=== PATIENT | female | born 1970 | race American Indian/Alaskan Native ===

== ENCOUNTER 2017-12-20 19:42 | Emergency (ER) | payer BC, OTHER ==
[2017-12-20 20:03] VITALS: TEMP 98.3; O2SAT 99
[2017-12-20] MEDS ORDERED: DiphenhydrAMINE 50 mg/ml Inj IVP STA (20:29)
--- NOTE | 2017-12-20 20:33 | C.PDOC ---
History Of Present Illness Patient is a 47 y/o F presenting with headache. Patient reports that she has had headache x 3 days. She reports that this morning she woke up this morning with R sided ptosis, so she went to her PMD. PMD Dr. Brennan sent her directly to the ED. She reports that she used oxygen today which relieved her headache. Denies any neck pain, weakness, numbness, tingling. Denies any other weakness or deficit. Time Seen by Provider: 12/20/17 20:14 Chief Complaint (Nursing): Headache Past Medical History Vital Signs: Last Vital Signs Temp 98.3 F 12/20/17 19:57 Pulse 81 12/20/17 19:57 Resp 18 12/20/17 19:57 BP 118/82 12/20/17 19:57 Pulse Ox 99 12/20/17 23:13 - Medical History PMH: Asthma, Diabetes, HTN, Migraine Surgical History: Cholecystectomy Family History: States: Unknown Family Hx - Social History Hx Tobacco Use: No Hx Alcohol Use: No Hx Substance Use: No - Immunization History Hx Tetanus Toxoid Vaccination: No Hx Influenza Vaccination: No Hx Pneumococcal Vaccination: No Review Of Systems Constitutional: Negative for: Fever, Chills, Weakness Eyes: Positive for: Other (ptosis). Negative for: Vision Change Cardiovascular: Negative for: Chest Pain, Palpitations Respiratory: Negative for: Cough, Shortness of Breath, SOB with Excertion, Wheezing Gastrointestinal: Negative for: Nausea, Vomiting, Abdominal Pain, Diarrhea, Constipation Genitourinary: Negative for: Dysuria Musculoskeletal: Negative for: Neck Pain, Shoulder Pain, Arm Pain Neurological: Negative for: Weakness, Numbness, Incoordination, Change in Speech , Confusion, Seizures, Altered Mental Status, Headache, Dizziness Psych: Negative for: Anxiety, Depression Physical Exam - Physical Exam Appears: Well, Non-toxic, No Acute Distress Skin: Normal Color, Warm, Dry Head: Atraumatic, Normacephalic Eye(s): bilateral: PERRL, EOMI, right: Other (R sided ptosis) Nose: Normal Oral Mucosa: Moist Tongue: Normal Appearing Lips: Normal Appearing Neck: Normal ROM, No Midline Cervical Tenderness, Supple Chest: Symmetrical Cardiovascular: Rhythm Regular Respiratory: Normal Breath Sounds Gastrointestinal/Abdominal: Normal Exam, Soft, No Tenderness, No Mass Back: Normal Inspection, No CVA Tenderness Extremity: Normal ROM Neurological/Psych: Oriented x3, Normal Speech, Normal Cognition, Normal Motor, Normal Sensation Gait: Steady ED Course And Treatment - Laboratory Results Result Diagrams: 12/20/17 21:39 12/20/17 21:39 O2 Sat by Pulse Oximetry: 99 NIHSS Stroke Scale - Date/Time Evaluation Performed Date Performed: 12/20/17 Time Performed: 20:49 - How Severe is the Stoke Level of Consciousness: 0=Alert LOC to Questions: 0=Both comments correct LOC to commands: 0=Obeys both correctly Best Gaze: 0=Normal Visual: 0=No visual loss Facial: 0=Normal Motor Arm - Left: 0=No drift Motor Arm - Right: 0=No drift Motor Leg - Left: 0=No drift Motor Leg - Right: 0=No drift Limb Ataxia: 0=Absent Sensory: 0=Normal Best Language: 0=No aphasia Dysarthia: 0=Normal articulation Extinction & Inattention (Neglect): 0=Normal, no object Score: 0 Severity Of Stroke: 0= No Stroke rTPA Inclusion/Exclusion - Refusal of Treatment Patient Refused Treatment: No - Inclusion Criteria for Altepase Patient is 18 years or Older: Yes The Clinical Diagnosis of Ischemic Stroke That is Causing a Potentially Disabling Neurological Deficit: No Time of Onset is Well Established to be Less Than 270 Minute Before Treatment Would Begin: No Risk/Benefit Discussed With Patient/Family Member Present: No Medical Decision Making Medical Decision Making: Patient has isolated ptosis with R sided headache. More consistent with cluster headache, but will r/o aneurysm CT head negative CTA head: No acute findings. 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 Clinical correlation and followup is recommended as clinically warranted CTA neck: No acute findings. No hemodynamically significant stenosis by NASCET criteria 11:10PM Headache improved after benadryl, tylenol and compazine and O2. Ptosis resolved. Spoke to Dr. Brennan who recommends dc with neurology follow-up. Disposition - Disposition Referrals: Teto Brennan MD [Primary Care Provider] - Amanda Stewart MD [Staff Provider] - Disposition: HOME/ ROUTINE Disposition Time: 23:11 Condition: GOOD Additional Instructions: Follow-up with neurology for headaches. Follow-up with Dr. Brennan within 2 days. Return to ED if condition worsens. Instructions: Cluster Headache Forms: [facility] (Hungarian) - Clinical Impression Clinical Impression: Headache
[2017-12-20] MEDS ORDERED: Iodixanol 320 mg/ml 150 ml Bottle IV ONE (20:51)
--- NOTE | 2017-12-20 21:25 | CT ---
EXAM: CT Head Without Intravenous Contrast EXAM DATE/TIME: Exam ordered 12/20/2017 8:30 PM CLINICAL HISTORY: 47 years old, female; Pain; Headache; Headache not specified; Additional info: R sided headache TECHNIQUE: Axial computed tomography images of the head/brain without intravenous contrast. All CT scans at this facility use one or more dose reduction techniques, viz.: automated exposure control; ma/kV adjustment per patient size (including targeted exams where dose is matched to indication; i.e. head); or iterative reconstruction technique. Coronal and sagittal reformatted images were created and reviewed. COMPARISON: No relevant prior studies available. FINDINGS: Brain: Basal ganglia calcifications are present. No hemorrhage. No significant white matter disease. Ventricles: Unremarkable. No ventriculomegaly. Bones/joints: Unremarkable. No acute fracture. Soft tissues: Unremarkable. Sinuses: Unremarkable as visualized. No acute sinusitis. Mastoid air cells: Unremarkable as visualized. No mastoid effusion. Nasopharynx: Calcifications are noted in the adenoids. IMPRESSION: No acute findings.
[2017-12-20] MEDS ORDERED: DiphenhydrAMINE 50 mg/ml Inj ONE (21:38)
[2017-12-20 21:44] LABS: BASO # 0.1 K/uL (0.0-0.2); BASO % 0.8 % (0.0-2.0); EOS # 0.1 K/uL (0.0-0.7); EOS % 1.6 % (0.0-4.0); HEMOGLOBIN 11.5 g/dL (11.0-16.0); LYMPH # 2.5 K/uL (1.0-4.3); LYMPH % 33.9 % (20.0-40.0); MEAN CELL VOLUME 80.6 fL (81.0-99.0); MEAN CORPUSCULAR HEMOGLOBIN 26.6 pg (27.0-31.0); MEAN CORPUSCULAR HGB CONC 33.1 g/dL (33.0-37.0); MEAN PLATELET VOLUME 8.9 fL (7.2-11.7); MONO # 0.4 K/uL (0.0-0.8); MONO % 4.9 % (0.0-10.0); NEUT # 4.4 K/uL (1.8-7.0); NEUT % 58.8 % (50.0-75.0); NRBC % 0.1 % (0.0-2.0); RBC 4.31 Mil/uL (3.80-5.20); RED CELL DISTRIBUTION WIDTH 15.7 % (11.5-14.5); WHITE BLOOD COUNT 7.4 K/uL (4.8-10.8)
[2017-12-20 22:01] LABS: ALBUMIN 3.9 g/dL (3.5-5.0); ALT/SGPT 13 U/L (9-52); AST/SGOT 19 U/L (14-36); BLOOD UREA NITROGEN 11 mg/dL (7-17); CALCIUM 8.7 mg/dl (8.6-10.4); GFR AFRICAN-AMERICAN > 60; GFR NON-AFRICAN AMERICAN > 60
[2017-12-21] VITALS: BP 110/70; PULSE 70; RESP 14
--- NOTE | 2017-12-21 10:04 | CT ---
PROCEDURE: CT Angiography of the neck and brain dated 12/20/2017 HISTORY: Ptosis with R sided headache COMPARISON: Correlation made with concurrent CT scan brain TECHNIQUE: Contiguous helical/transaxial images of the neck were obtained from the level of the skull-base to the superior mediastinum in the arteriographic phase of enhancement. Coronal and sagittal reformats or also generated. . Note that the study is somewhat limited the due to large body habitus resulting in streak and beam hardening artifact. IV contrast dose: 100 cc Visipaque 320 Radiation Dose - DLP: 702.5 mGy-cm This CT exam was performed using one or more of the following dose reduction techniques: Automated exposure control, adjustment of the mA and/or kV according to patient size, and/or use of iterative reconstruction technique. . FINDINGS: The visualized portions of the aortic arch widely patent with no significant atherosclerotic plaque. The origins of the great vessels are patent so far as can be seen. Three-vessel arch. The visualized portions of the common carotid arteries and carotid bifurcations widely patent. Both internal carotid arteries including the petrous cavernous and supraclinoid segments are patent. Note that the internal carotid arteries exhibited very short retropharyngeal course, right-sided which slightly more medial in location than the left. Both vertebral arteries are also patent and relatively symmetric and caliber. There appears to be some minor asymmetry of the A1 segments left-sided which is slightly larger in caliber than the right on felt to represent an anatomic variation. . The middle cerebral and anterior cerebral arteries are also patent and appear relatively symmetric as well. The basilar artery is patent. The visualized portions of the posterior cerebral arteries are also patent with distal branches appear symmetric as well. No evidence of large aneurysm nor vascular malformation IMPRESSION: No evidence of occlusion or nor significant stenosis. No evidence of large aneurysm nor vascular malformation. Note that preliminary report was provided by overnight radiology service.
== END 2017-12-21 | disposition home or self-care (01) ==
LOC: C.ER 19:42 → SUPCPDRO 19:42 → C.ER 12-21
DX: R51 Headache (principal); E11.9 Type 2 diabetes mellitus without complications; I10 Essential (primary) hypertension
CPT/HCPCS: 70450; 70496; 70498; 80053; 85025; 96372; 96374; 99284; J0780; J1200; Q9967

== ENCOUNTER 2019-01-03 12:03 | Outpatient (CLI) | payer MEDICAID | END 2019-01-03 12:04 | disposition home or self-care (01) | LOC: C.DIABED 12:03 | DX: E66.9 Obesity, unspecified (principal); Z68.39 Body mass index [BMI] 39.0-39.9, adult; Z71.3 Dietary counseling and surveillance ==

== ENCOUNTER 2019-01-20 10:50 | Outpatient (CLI) | payer MEDICAID | END 2019-01-20 10:51 | disposition home or self-care (01) | LOC: C.DIABED 10:50 ==